=== PATIENT | female | born 1975 | race Caucasian/White ===

== ENCOUNTER 2017-08-12 17:10 | Emergency (ER) | payer OTHER ==
[~2017-08-12] VITALS: Ht 170.1 cm; Wt 74.8 kg
[2017-08-12 17:39] LABS: BASO % 0.5 % (0.0-1.0); EOS # 0.2 10*3/uL (0.0-0.4); EOS % 3.2 % (1.0-4.0); HEMATOCRIT 40.1 % (37.0-47.0); HEMOGLOBIN 13.1 g/dl (12.0-16.0); LYMPH % 40.4 % (27.0-41.0); MEAN CELL VOLUME 90.5 fl (81.0-99.0); MEAN CORPUSCULAR HGB 29.6 pg (27.0-31.0); MEAN CORPUSCULAR HGB CONC 32.7 g/dl (33.0-37.0); MEAN PLATELET VOLUME 9.9 fl (9.6-12.3); MONO # 0.4 10*3/uL (0.1-1.0); MONO % 5.5 % (3.0-9.0); NEUT # 3.7 10*3/uL (2.3-7.9); PLATELET COUNT AUTOMATED 286 10*3/uL (130-400); RED BLOOD COUNT 4.43 10*6/uL (4.10-5.10); RED CELL DISTRI WIDTH 13.3 % (0-14.5); WHITE BLOOD COUNT 7.5 10*3/uL (4.8-10.8)
[2017-08-12 17:55] LABS: ALBUMIN 3.9 gm/dl (3.1-4.5); ALKALINE PHOSPHATASE 66 U/L (45-117); BUN 12 mg/dl (7-24); CHLORIDE 101 mmol/L (98-107); CREATININE 0.94 mg/dL (0.55-1.02); POTASSIUM 3.6 mmol/L (3.5-5.1); SGOT/AST 10 IU/L (3-35); SGPT/ALT 27 U/L (12-78); SODIUM 135 mmol/L (136-145); TOTAL PROTEIN 7.1 gm/dL (6.4-8.2)
[2017-08-12] MEDS ORDERED: NAPROSYN500 MG PO (18:21)
== END 2017-08-12 18:18 | disposition home or self-care (01) ==
LOC: ED 17:10
PROVIDERS: Nurse Practitioner Family
DX: M77.9 Enthesopathy, unspecified (principal)

== ENCOUNTER 2017-08-29 22:21 | Emergency (ER) | payer OTHER ==
[~2017-08-29] VITALS: Ht 170.1 cm; Wt 78.0 kg
[~2017-08-29 22:21] MED LIST: NAPROSYN500 MG PO
[2017-08-29 23:10] LABS: URINE AMPHETAMINES < 1000 (1000ng/ml); URINE BARBITURATES < 200 (200ng/ml); URINE BENZODIAZEPINES < 200 (200ng/ml); URINE CANNABINOIDS (THC) < 50 (50ng/ml); URINE COCAINE < 300 (300ng/ml); URINE METHADONE < 300 (300ng/ml); URINE OPIATES < 300 (300ng/ml); URINE PHENCYCLIDINE < 25 (25ng/ml)
[2017-08-29 23:14] LABS: BASO # 0.1 10*3/uL (0.0-0.1); BASO % 0.4 % (0.0-1.0); EOS # 0.4 10*3/uL (0.0-0.4); EOS % 3.1 % (1.0-4.0); HEMATOCRIT 38.9 % (37.0-47.0); HEMOGLOBIN 12.9 g/dl (12.0-16.0); LYMPH # 3.8 10*3/uL (1.3-4.4); LYMPH % 32.7 % (27.0-41.0); MEAN CELL VOLUME 87.6 fl (81.0-99.0); MEAN CORPUSCULAR HGB 29.1 pg (27.0-31.0); MEAN CORPUSCULAR HGB CONC 33.2 g/dl (33.0-37.0); MEAN PLATELET VOLUME 9.9 fl (9.6-12.3); MONO # 0.9 10*3/uL (0.1-1.0); MONO % 7.4 % (3.0-9.0); NEUT # 6.5 10*3/uL (2.3-7.9); NEUT % 55.8 % (47.0-73.0); PLATELET COUNT AUTOMATED 273 10*3/uL (130-400); RED BLOOD COUNT 4.44 10*6/uL (4.10-5.10); RED CELL DISTRI WIDTH 13.2 % (0-14.5); WHITE BLOOD COUNT 11.6 10*3/uL (4.8-10.8)
[2017-08-29 23:23] LABS: ACT PARTIAL THROMBO TIME 23.1 SECONDS (20.8-31.5); INTERNATIONAL NORM RATIO 0.9 (2.0-3.5)
[2017-08-29 23:31] LABS: ALBUMIN 3.6 gm/dl (3.1-4.5); ALKALINE PHOSPHATASE 66 U/L (45-117); BUN 12 mg/dl (7-24); CHLORIDE 105 mmol/L (98-107); CREATININE 0.74 mg/dL (0.55-1.02); POTASSIUM 3.7 mmol/L (3.5-5.1); SGOT/AST 10 IU/L (3-35); SGPT/ALT 27 U/L (12-78); SODIUM 139 mmol/L (136-145); TOTAL PROTEIN 7.1 gm/dL (6.4-8.2)
[2017-08-29 23:37] LABS: TROPONIN I < 0.015 ng/ml (<0.045)
== END 2017-08-30 02:49 | disposition home or self-care (01) ==
LOC: ED 22:21
PROVIDERS: Emergency Medicine
DX: R07.89 Other chest pain (principal); F17.200 Nicotine dependence, unspecified, uncomplicated; I10 Essential (primary) hypertension; E11.9 Type 2 diabetes mellitus without complications; E78.5 Hyperlipidemia, unspecified; F41.9 Anxiety disorder, unspecified

== ENCOUNTER 2018-10-25 15:07 | Emergency (ER) | payer OTHER ==
[~2018-10-25] VITALS: Ht 170.1 cm; Wt 72.6 kg
[2018-10-25] MEDS ORDERED: VISTARIL50 MG PO (17:03)
[2018-10-25] MEDS ORDERED: PREDNISONE50 MG PO (17:03)
== END 2018-10-25 18:05 | disposition home or self-care (01) ==
LOC: ED 15:07
DX: T63.441A Toxic effect of venom of bees, accidental (unintentional), initial encounter (principal); L29.8 Other pruritus; R22.0 Localized swelling, mass and lump, head; Y92.89 Other specified places as the place of occurrence of the external cause

== ENCOUNTER 2022-09-13 09:48 | Emergency (ER) | payer OTHER ==
[~2022-09-13] VITALS: Ht 170.1 cm; Wt 68.0 kg
[~2022-09-13 09:48] MED LIST changes: +PREDNISONE50 MG PO; +VISTARIL50 MG PO
[2022-09-13 10:17] LABS: BASO # 0.1 10*3/uL (0.0-0.1); BASO % 0.7 % (0.0-1.0); EOS # 0.1 10*3/uL (0.0-0.4); EOS % 1.6 % (1.0-4.0); HEMATOCRIT 46.2 % (37.0-47.0); LYMPH # 2.4 10*3/uL (1.3-4.4); MEAN CELL VOLUME 91.3 fl (81.0-99.0); MEAN CORPUSCULAR HGB 31.4 pg (27.0-31.0); MEAN CORPUSCULAR HGB CONC 34.4 g/dl (33.0-37.0); MEAN PLATELET VOLUME 9.4 fl (9.6-12.3); MONO # 0.4 10*3/uL (0.1-1.0); MONO % 5.7 % (3.0-9.0); NEUT # 4.5 10*3/uL (2.3-7.9); NEUT % 59.6 % (47.0-73.0); PLATELET COUNT AUTOMATED 299 10*3/uL (130-400); RED BLOOD COUNT 5.06 10*6/uL (4.10-5.10); RED CELL DISTRI WIDTH 12.7 % (0-14.5); WHITE BLOOD COUNT 7.5 10*3/uL (4.8-10.8)
[2022-09-13 10:28] LABS: ACT PARTIAL THROMBO TIME 28.4 SECONDS (20.0-32.1); INTERNATIONAL NORM RATIO 0.9 (2.0-3.5)
[2022-09-13 10:41] LABS: ALKALINE PHOSPHATASE 69 U/L (46-116); BETA-HCG, QUANT < 3.0 mIU/mL (3-10); BUN 14 mg/dl (9-23); CHLORIDE 104 mmol/L (98-107); LIPASE 84 U/L (12-53); POTASSIUM 3.8 mmol/L (3.4-5.1); SGPT/ALT 33 U/L (10-49); TOTAL PROTEIN 7.4 gm/dL (6.0-8.0)
[2022-09-13] MEDS ORDERED: PEPCID20 MG PO (13:05)
== END 2022-09-13 13:10 | disposition home or self-care (01) ==
LOC: ED 09:48
PROVIDERS: Emergency Medicine
DX: K29.70 Gastritis, unspecified, without bleeding (principal); K21.9 Gastro-esophageal reflux disease without esophagitis; R07.89 Other chest pain; E11.9 Type 2 diabetes mellitus without complications; I10 Essential (primary) hypertension